=== PATIENT | male | born 1940 | race Caucasian/White ===

== ENCOUNTER 2019-04-28 06:27 | Inpatient (IN) ==
--- NOTE | 2019-04-11 13:52 | Anesthesiology Consultation ---
Date of Service April 11, 2019 Assessment & Plan (1) Encounter for pre-operative examination: - Awaiting review preop testing (labs, EKG, CXR). - Awaiting PCP office visit scheduled 04/22 (Dr. Jaffe). - Check [facility] AM DOS Chart Review Chart Review: Patient seen in Pre Admission Testing Teaching & Discussion Pre-Anesthesia Teaching/Discussion Notes: Instructed NPO after midnight before surgery,except medications with 15 cc of water. Medication instructions provided according to the PAT guidelines. History Surgery Operation Date: 04/28/19 10:25 Proposed Procedures p L2-L3, L3-L4 Lumbar Discectomy and Fusion, Possible Interbody Cage, Spinal Cord Monitoring - Stuart Bernard, Height/Weight Height: 5 ft 6 in Weight: 68.9 kg Allergies Allergy/AdvReac Type Severity Reaction Status Date / Time No Known Allergies Allergy Verified 04/04/19 11:06 Medications Home Medications Medication Instructions Recorded Confirmed Last Taken amlodipine 10 mg PO HS 04/04/19 04/04/19 Unknown ascorbic acid (vitamin C) [Vitamin 500 mg PO QAM 04/04/19 04/04/19 Unknown C] aspirin [Aspir-81] 81 mg PO 3XWK 04/04/19 04/04/19 Unknown atorvastatin 5 mg PO HS 04/04/19 04/04/19 Unknown bimatoprost [Lumigan] 1 drp OPHTHALMIC (EYE) PM 04/04/19 04/04/19 Unknown brimonidine [Alphagan P] 1 drp OPHTHALMIC (EYE) BID 04/04/19 04/04/19 Unknown carvedilol [Coreg] 12.5 mg PO BID 04/04/19 04/04/19 Unknown cholecalciferol (vitamin D3) 1,000 unit PO HS 04/04/19 04/04/19 Unknown [Vitamin D3] coenzyme Q10 [CoQ-10] 100 mg PO HS 04/04/19 04/04/19 Unknown fexofenadine [Shira Allergy] 180 mg PO HS 04/04/19 04/04/19 Unknown fluticasone furoate-vilanterol 1 inh INHALATION Q2D 04/04/19 04/04/19 Unknown [Breo Ellipta] glipizide 5 mg PO QAM 04/04/19 04/04/19 Unknown hydrochlorothiazide 25 mg PO QAM 04/04/19 04/04/19 Unknown insulin glargine U-300 conc 19 unit SUBCUT HS 04/04/19 04/04/19 Unknown [Toujeo Max U-300 SoloStar] insulin lispro [Humalog KwikPen 1 unit SUBCUT QID 04/04/19 04/04/19 Unknown Insulin] lisinopril 40 mg PO QAM 04/04/19 04/04/19 Unknown qslwltke-lcl-SS-lycopen-lutein 1 tab PO QAM 04/04/19 04/04/19 Unknown [Centrum Silver] pantoprazole [Protonix] 40 mg PO QAM 04/04/19 04/04/19 Unknown vit C,X-Vi-bjupn-lutein-zeaxan 1 tab PO QAM 04/04/19 04/04/19 Unknown [PreserVision AREDS-2] Past Medical History Medical History Asthma BPH (benign prostatic hyperplasia) Barretts esophagus Chronic back pain LLE neuropathy Chronic kidney disease stage III- received labs dating back from 09/2018 with creatinine in range of 1.4-1.66 Diabetes mellitus, type 2 IDDM GERD (gastroesophageal reflux disease) controlled Glaucoma B/L Hx of basal cell carcinoma s/p excision Hx of squamous cell carcinoma s/p excision Hyperlipidemia Hypertension On home oxygen therapy 1L HS (?nocturnal hypoxia) Exercise / Class Metabolic Activity III < 4 Walking/Shop/Light housework Past Family History Family History Mother Family history of diabetes mellitus Aunt Family history of diabetes mellitus Grandfather (Paternal) Family history of diabetes mellitus Grandmother (Paternal) Family history of diabetes mellitus Past Surgical History Surgical History History of tonsillectomy and adenoidectomy Hx of basal cell carcinoma excision Hx of hernia repair right inguinal Hx of squamous cell carcinoma excision Past Anesthesia History No Hx of Anesthesia Complications and No Family Hx of Anesthesia Complications History of PONV No Hx of PONV and No Hx of Motion Sickness Social History Smoking Status: Former smoker Do You Dip or Chew Tobacco: No Smoking End Date: Quit 2017; hx <1/2 - 1 PPD x total 60 years Hx Alcohol Use: Yes Alcohol type: beer, wine and hard liquor alcohol intake frequency: a few times a month Hx Substance Use: No Review of Systems Reflux controlled. Patient denies chest pain, shortness of breath, dyspnea on exertion, joint pain, reflux, cough, wheezing, palpitations. Physical Exam Vital Signs VITALS BP 168/67 P 67 TEMP 98.5 SP02 96%RA RESP 16 PHYSICAL Mildly decreased cervical extension ("tightness" per patient) Full TMJ range of motion. TMD 2.5 finger breaths Mallampati Score 2 Dentition: missing sides/molars, upper front bonded teeth Lungs: clear throughout to auscultation Cardiac: regular rate and rhythm, no murmurs noted Spine: normal Carotid arteries: negative bruit Extremities: no edema
--- NOTE | 2019-04-11 13:53 | PAT Medication Instructions ---
Medication Instructions Date of Service April 11, 2019 Home Medications amlodipine 10 mg PO HS ascorbic acid (vitamin C) [Vitamin C] 500 mg PO QAM aspirin [Aspir-81] 81 mg PO 3XWK atorvastatin 5 mg PO HS bimatoprost [Lumigan] 1 drp OPHTHALMIC (EYE) PM brimonidine [Alphagan P] 1 drp OPHTHALMIC (EYE) BID carvedilol [Coreg] 12.5 mg PO BID cholecalciferol (vitamin D3) [Vitamin D3] 1,000 unit PO HS coenzyme Q10 [CoQ-10] 100 mg PO HS fexofenadine [Shira Allergy] 180 mg PO HS fluticasone furoate-vilanterol [Breo Ellipta] 1 inh INHALATION Q2D glipizide 5 mg PO QAM hydrochlorothiazide 25 mg PO QAM insulin glargine U-300 conc [Toujeo Max U-300 SoloStar] 19 unit SUBCUT HS insulin lispro [Humalog KwikPen Insulin] 1 unit SUBCUT QID lisinopril 40 mg PO QAM uwpmhxtr-yrq-FF-lycopen-lutein [Centrum Silver] 1 tab PO QAM pantoprazole [Protonix] 40 mg PO QAM vit C,H-Th-rgfnk-lutein-zeaxan [PreserVision AREDS-2] 1 tab PO QAM Continue as directed fluticasone furoate-vilanterol [Breo Ellipta] 1 inh INHALATION Q2D ASK your prescriber and surgeon aspirin [Aspir-81] 81 mg PO 3XWK STOP taking 2 weeks before surgery (or as soon as possible if surgery is within 2 weeks) coenzyme Q10 [CoQ-10] 100 mg PO HS vit C,U-Eu-uvpit-lutein-zeaxan [PreserVision AREDS-2] 1 tab PO QAM DO NOT take the morning of surgery ascorbic acid (vitamin C) [Vitamin C] 500 mg PO QAM glipizide 5 mg PO QAM hydrochlorothiazide 25 mg PO QAM insulin lispro [Humalog KwikPen Insulin] 1 unit SUBCUT QID lisinopril 40 mg PO QAM [Centrum Silver] 1 tab PO QAM Take morning of surgery With a small sip of water, OTHERWISE NOTHING TO EAT OR DRINK AFTER MIDNIGHT: brimonidine [Alphagan P] 1 drp OPHTHALMIC (EYE) BID carvedilol [Coreg] 12.5 mg PO BID fluticasone furoate-vilanterol [Breo Ellipta] 1 inh INHALATION Q2D pantoprazole [Protonix] 40 mg PO QAM Take evening before surgery amlodipine 10 mg PO HS atorvastatin 5 mg PO HS bimatoprost [Lumigan] 1 drp OPHTHALMIC (EYE) PM brimonidine [Alphagan P] 1 drp OPHTHALMIC (EYE) BID carvedilol [Coreg] 12.5 mg PO BID cholecalciferol (vitamin D3) [Vitamin D3] 1,000 unit PO HS coenzyme Q10 [CoQ-10] 100 mg PO HS fexofenadine [Shira Allergy] 180 mg PO HS insulin glargine U-300 conc [Toujeo Max U-300 SoloStar] 19 unit SUBCUT HS insulin lispro [Humalog KwikPen Insulin] 1 unit SUBCUT QID Other Notes If you have any questions please call us at [phone] or [phone] or [phone] or [phone]
--- NOTE | 2019-04-11 14:47 | XRay Report ---
XR chest Pre-admission PA/Lat HISTORY: Preop. COMPARISON: None. FINDINGS: Punctate calcified granuloma within the right midlung zone. Otherwise, the lungs are clear. The heart is normal in size. No pleural effusions. No pneumothorax. Old, healed right-sided rib frac tures. IMPRESSION: No acute process. Electronically signed by: Abdirahman Minor M.D. 04/11/2019 2:45 PM
[2019-04-11 15:40] LABS: Basophils # (auto) 0.04 K/uL (0-0.2); Basophils % (auto) 0.6 %; Eosinophils # (auto) 0.09 K/uL (0-0.5); Eosinophils % (auto) 1.4 %; Hematocrit (blood only) 35.5 % (42-52); Hemoglobin 11.8 g/dL (14.0-18.0); Immature Granulocytes # (auto) 0.01 K/uL (0.00-0.02); Immature Granulocytes % (auto) 0.2 %; Lymphocytes % (auto) 15.2 %; Mean Corpuscular Hemoglobin 28.9 pg (25-34); Mean Corpuscular Hgb Conc 33.2 g/dL (32-36); Mean Platelet Volume 10.9 fL (7.4-10.4); Monocytes % (auto) 9.1 %; Neutrophils # (auto) 4.85 K/uL (1.4-6.5); Neutrophils % (auto) 73.5 %; Platelet Count 197 K/uL (130-400); RDW Coefficient of Variation 13.8 % (11.5-14.5); RDW Standard Deviation 44.3 fL (36.4-46.3); Red Blood Count 4.08 M/uL (4.7-6.1); White Blood Count 6.59 K/uL (4.8-10.8)
[2019-04-11 15:52] LABS: BUN Creatinine Ratio 33.7 (10-20); Creatinine Clr Calc Pharmacy 34.7 ml/min; Est GFR (Non-African American) 42.3; Potassium 5.2 mmol/L (3.5-5.1)
[2019-04-11 15:53] LABS: Appearance Urine Clear (Clear); Bacteria Urine Automated Negative (Negative); Bilirubin Urine Negative (Negative); Blood Urine Negative (Negative); Cast Urine Automated 0 /lpf (0-5); Color Urine Yellow; Glucose Urine UA 1+ (Negative); Ketones Urine Negative (Negative); Leukocyte Esterase Urine Negative (Negative); Nitrite Urine Negative (Negative); Protein Urine 1+ (Negative); RBC Urine Automated 0-4 /hpf (0-4); Specific Gravity Urine 1.016 (1.000-1.030); Urobilinogen Urine Negative (Negative)
[2019-04-11 16:05] LABS: INR 1.1 (0.9-1.1); Prothrombin Time 10.9 Seconds (9.0-12.0)
[2019-04-12 06:06] LABS: Estimated Average Glucose 174 mg/dl; Hemoglobin A1C 7.7 % (4.5-5.6)
[~2019-04-28 06:27] MED LIST: ACETAMINOPHEN 500 MG TAB PO SCH; CEFAZOLIN 1000MG 1,000 MG/7.5 ML SYR IV SCH; CeleBREX 200 MG CAP PO SCH; GABAPENTIN 300 MG CAP PO SCH; LR 15ML/HR IV SCH
[2019-04-28] MEDS ORDERED: HYDROmorphone INJ 2 MG/ML SYR/VIAL ONE (06:36)
[2019-04-28] MEDS ORDERED: fentaNYL citrate 100 MCG/2 ML VIAL ONE (06:36)
[2019-04-28] MEDS ORDERED: KETAMINE HCL INJ 50 MG/ML 10 ML VIAL ONE (06:36)
--- NOTE | 2019-04-28 07:23 | History & Physical Bridge Note ---
Date of Service April 28, 2019 History & Physical Bridge Note I have examined the patient, reviewed the History & Physical and in the interval since the performance of the History & Physical I have noted the following changes of clinical significance: no changes noted
--- NOTE | 2019-04-28 07:24 | History & Physical Report ---
Date of Service April 28, 2019 Assessment & Plan (1) Spinal stenosis, lumbar region with neurogenic claudication: L2-L4 decompression and fusion Present on Admission?: Yes History of Present Illness Chief Complaint: Back and leg pain Primary Care Provider: NO PCP This is a 78-year-old male who presents with chronic persistent back and leg pain after failing extensive course of nonoperative care is here for surgical intervention. Allergies Allergy/AdvReac Type Severity Reaction Status Date / Time No Known Allergies Allergy Verified 04/28/19 06:45 Home Medications Home Medications Medication Instructions Recorded Confirmed Type amlodipine 10 mg PO HS 04/04/19 04/28/19 History ascorbic acid (vitamin C) [Vitamin 500 mg PO QAM 04/04/19 04/28/19 History C] aspirin [Aspir-81] 81 mg PO 3XWK 04/04/19 04/28/19 History atorvastatin 10 mg PO HS 04/04/19 04/28/19 History bimatoprost [Lumigan] 1 drp OPHTHALMIC (EYE) PM 04/04/19 04/28/19 History brimonidine [Alphagan P] 1 drp OPHTHALMIC (EYE) BID 04/04/19 04/28/19 History carvedilol [Coreg] 12.5 mg PO BID 04/04/19 04/28/19 History cholecalciferol (vitamin D3) 1,000 unit PO HS 04/04/19 04/28/19 History [Vitamin D3] coenzyme Q10 [CoQ-10] 100 mg PO HS 04/04/19 04/28/19 History fexofenadine [Shira Allergy] 180 mg PO HS 04/04/19 04/28/19 History fluticasone furoate-vilanterol 1 inh INHALATION Q2D 04/04/19 04/28/19 History [Breo Ellipta] glipizide 5 mg PO QAM 04/04/19 04/04/19 History hydrochlorothiazide 25 mg PO QAM 04/04/19 04/28/19 History insulin glargine U-300 conc 19 unit SUBCUT HS 04/04/19 04/28/19 History [Toujeo Max U-300 SoloStar] insulin lispro [Humalog KwikPen 1 unit SUBCUT QID 04/04/19 04/28/19 History Insulin] lisinopril 40 mg PO QAM 04/04/19 04/28/19 History ajvvffsr-gds-FI-lycopen-lutein 1 tab PO QAM 04/04/19 04/28/19 History [Centrum Silver] pantoprazole [Protonix] 40 mg PO QAM 04/04/19 04/28/19 History vit C,V-Iy-weziz-lutein-zeaxan 1 tab PO QAM 04/04/19 04/28/19 History [PreserVision AREDS-2] Past Med/Surg History Family History Mother Family history of diabetes mellitus Aunt Family history of diabetes mellitus Grandfather (Paternal) Family history of diabetes mellitus Grandmother (Paternal) Family history of diabetes mellitus Social History Preferred Language: Mauritian Communication Ability: Effective Beliefs That Will Affect Care: None Current Living Situation: Spouse Feels Safe at Home: Yes Safety Concerns: Feels Safe At This Time Smoking Status: Former smoker Do You Dip or Chew Tobacco: No ; Smoking End Date: Quit 2017; hx <1/2 - 1 PPD x total 60 years ; Second Hand Exposure: No ; Hx Alcohol Use: Yes Alcohol type: beer, wine and hard liquor Hx Substance Use: No Results & Data Vital Signs (Past 12 Hours) Vital Signs Temp Pulse Resp BP Pulse Ox 04/28/19 06:59 36.7 C 75 16 183/77 H 96
[2019-04-28] MEDS ORDERED: BACITRACIN INJ 50,000 UNIT VIAL ONE (07:30)
[2019-04-28] MEDS ORDERED: BUPIVACAINE/EPINEPHRINE 0.5% MPF 1:200,000 30 ML VIAL ONE (07:30)
[2019-04-28] MEDS ORDERED: fentaNYL citrate 100 MCG/2 ML VIAL IV PRN (07:33)
[2019-04-28] MEDS ORDERED: ATROPINE SULFATE 0.1 MG/ML 10ML SYR IV PRN (07:33)
[2019-04-28] MEDS ORDERED: HYDROmorphone INJ 1 MG/ML SYRINGE IV PRN ×2 (07:33→10:59)
[2019-04-28] MEDS ORDERED: PHENYLEPHRINE 100MCG/ML 5ML SYR IV PRN (07:33)
[2019-04-28] MEDS ORDERED: ONDANSETRON INJ 2 MG/ML 2 ML VIAL IV PRN ×2 (07:33→10:59)
[2019-04-28] MEDS ORDERED: MEPERIDINE HCL 25 MG/ML CARP IV PRN (07:33)
[2019-04-28] MEDS ORDERED: LABETALOL HCL IV 5 MG/ML 20ML IV PRN (07:33)
[2019-04-28] MEDS ORDERED: ePHEDrine sulfate 50 MG/ML AMP IV PRN (07:33)
[2019-04-28] MEDS ORDERED: FLOSEAL HEMOSTATIC MATRIX 10ML TOP ONE (08:00)
[2019-04-28] MEDS ORDERED: PROPOFOL IV EMULSION 10 MG/ML 20 ML VIAL IV ONE (08:05)
[2019-04-28] MEDS ORDERED: DEXAMETHASONE SOD INJ 4 MG/ML VIAL ONE (08:05)
[2019-04-28] MEDS ORDERED: NEOSTIGMINE METHYLSULFATE 1 MG/ML 10ML VIAL ONE (08:05)
[2019-04-28] MEDS ORDERED: ONDANSETRON INJ 2 MG/ML 2 ML VIAL ONE (08:05)
[2019-04-28] MEDS ORDERED: ROCURONIUM BROMIDE 10 MG/ML 5 ML VIAL ONE (08:05)
[2019-04-28] MEDS ORDERED: GLYCOPYRROLATE 0.2 MG/ML VIAL ONE (08:05)
[2019-04-28] MEDS ORDERED: LIDOCAINE HCL 2% 2 ML VIAL/AMP(20MG/ML) INFIL ONE (08:05)
[2019-04-28] MEDS ORDERED: ePHEDrine sulfate 50 MG/ML SYR ONE (08:23)
--- NOTE | 2019-04-28 09:31 | Operative Report ---
Post Operative Report Pre & Post Diagnosis Operation Date: 04/28/19 07:45 Pre-Op Diagnosis: Spondyloslisthesis, Lumbar Region Spinal stenosis with neurogenic claudication Post-Op Diagnosis: Same I identified the patient and participated in the time-out.: Yes Procedure Operation Date: 04/28/19 07:45 Actual Procedures #1 lumbar decompression with bilateral medial facetectomies and foraminotomies L2-3 L3-4. #2 posterior spinal fusion L2-3 L3-4. #3 placement posterior instrumentation L2-3 L3-4. #4 interbody fusion L3-4. #5 placement of peek cage 11 x 26 mm at L3-4. #6 basement of local autograft in the posterior lateral gutters. #7 placement infuse collagen sponge, master graft in the posterior lateral gutters and ostial amp and interbody space. Surgeon Stuart Bernard DO Construction Analyst Cristel Mckinnon Estimated Blood Loss 50 Findings Consistent with Post-Op Diagnosis Specimens None Indications This is an 78-year-old male who presents with the above-mentioned diagnosis after failing extensive course of nonoperative care is here for surgical intervention. Description of Procedure Patient was met with identified and informed consent obtained. Patient was then taken to the operative suite underwent intubation placed in a prone position the Gary table on top of the Donovan frame. All bony prominences well-padded eyes inspected to ensure no external pressure placed upon the peer at this point the lumbar spine was prepped and draped in the normal sterile fashion. Sharp dissection with the assistance of Bovie cautery was then performed down to and exposing the lamina transverse processes of L2-L3-L4 bilaterally. From a caudal cephalad fashion complete laminectomy of L3 and L2 was performed including bilateral medial facetectomies and foraminotomies addressing severe spinal stenosis. Pedicle screws were then placed in L2-L3-L4 bilaterally with assistance of fluoroscopy the purposes anjali placed. By way of a transforaminal approach on the left complete discectomy was performed endplates curetted to subcortical bleeding bone and a 11 x 26 mm peek cage filled with osteo-amp bone graft tapped in position. The rods were then compressed locked into final position bilaterally. The transverse processes of L2-L3-L4 were then burred to subcortical bleeding bone. Infuse collagen sponge master graft and local autograft placed in the posterior lateral gutters. 15 round TAD drain inserted. The incision was then closed with 1 Vicryl in the fascia 2-0 Vicryl subcutaneously 4 Monocryl for final skin closure. Steri-Strip sterile dressings placed. Patient awakened taken to PACU in stable condition. Please note spinal cord monitoring was utilized that the procedure no changes noted. Lastly Cristel Mckinnon was present throughout the entire procedure involved in patient positioning complex portions of the surgery and final skin closure. I attest to the content of the Intraoperative Record and any orders documented therein. Any exceptions are noted below.
--- NOTE | 2019-04-28 09:51 | Fluoroscopy Report ---
LUMBAR SPINE, INTRAOPERATIVE FLUOROSCOPY HISTORY: L2-L4 decompression and fusion. FLUOROSCOPY TIME: 18 seconds. FINDINGS: Intraoperative fluoroscopy was provided for the lumbar spine. 2 fluoroscopic spot images we re obtained. Posterior decompression fusion from L2 through L4 with pedicle screws and rods. The hard johnson appears intact. IMPRESSION: Fluoroscopy provided for a L2-L4 posterior decompression and fusion. Electronically signed by: Abdirhaman Minor M.D. 04/28/2019 9:50 AM
--- NOTE | 2019-04-28 10:45 | Anesthesiology Progress Note ---
Date of Service April 28, 2019 Anesthesia Post Procedure Vital Signs Vital Signs: Temp Pulse Resp BP Pulse Ox 04/28/19 10:21 36.8 C 51 L 14 140/58 L 94 04/28/19 10:10 36.8 C 58 L 17 137/56 L 96 04/28/19 10:00 52 L 15 136/55 L 99 04/28/19 09:50 53 L 12 134/59 L 100 04/28/19 09:40 36.2 C L 61 18 124/54 L 100 04/28/19 06:59 36.7 C 75 16 183/77 H 96 Transfer of Care Handoff Completed per policy Notes Mental Status: alert / awake / arousable Patient Amnestic to Procedure: Yes Nausea / Vomiting: adequately controlled Pain: adequately controlled Airway Patency, RR, SpO2: stable & adequate BP & HR: stable & adequate Hydration State: stable & adequate Anesthetic Complications: no major complications apparent and Pt Satisfied with anesthetic care
[2019-04-28] MEDS ORDERED: NALOXONE HCL 0.4 MG/1 ML VIAL/CARP IV PRN (10:59)
[2019-04-28] MEDS ORDERED: DO NOT ADMINISTER FLU VACCINE PRN (10:59)
[2019-04-28] MEDS ORDERED: PROMETHAZINE HCL 12.5 MG in SODIUM CHLORIDE 0.9% 50 ML IV PRN (10:59)
[2019-04-28] MEDS ORDERED: FAMOTIDINE 20 MG TAB PO PRN (10:59)
[2019-04-28] MEDS ORDERED: HYDROmorphone INJ 0.5 MG/0.5 ML SYR IV PRN (10:59)
[2019-04-28] MEDS ORDERED: SOD PHOSPHATE/SOD BIPHOSPHATE ENEMA 132 ML BTL PR PRN (10:59)
[2019-04-28] MEDS ORDERED: LORazepam 0.5 MG TAB PO PRN (10:59)
[2019-04-28] MEDS ORDERED: ACETAMINOPHEN 1,000 MG/100 ML VIAL IV PRN (10:59)
[2019-04-28] MEDS ORDERED: BISACODYL 10 MG SUPP PR PRN (10:59)
[2019-04-28] MEDS ORDERED: LORazepam 0.5 MG/1 ML VIAL IV PRN (10:59)
[2019-04-28] MEDS ORDERED: DO NOT ADMINISTER PNEUMOCOCCAL VACCINE PRN (10:59)
[2019-04-28] MEDS ORDERED: ONDANSETRON 4 MG TAB PO PRN (10:59)
[2019-04-28] MEDS ORDERED: OXYCODONE HCL IR 5 MG TAB (IMMEDIATE RELEASE) PO PRN (10:59)
[2019-04-28] MEDS ORDERED: ALUMINUM/MAGNESIUM SUSP 30 ML UDC PO PRN (10:59)
[2019-04-28] MEDS ORDERED: MAGNESIUM HYDROXIDE SUSP 30 ML UDC PO PRN (10:59)
[2019-04-28] MEDS ORDERED: METOCLOPRAMIDE HCL INJ 5 MG/ML 2 ML VIAL IV PRN (10:59)
[2019-04-28] MEDS ORDERED: GLUCOSE 40% GEL 15 GM TUBE PO PRN (11:59)
[2019-04-28] MEDS ORDERED: GLUCOSE 10 TABS/TUBE PO PRN (11:59)
[2019-04-28] MEDS ORDERED: GLUCAGON FOR INJ 1 MG VIAL SQ PRN (11:59)
[2019-04-28] MEDS ORDERED: DEXTROSE 50% 50 ML SYRINGE IV PRN (11:59)
[2019-04-28] MEDS ORDERED: CARBOHYDRATES FOR HYPOGLYCEMIA PO PRN (11:59)
[2019-04-28] MEDS: ASPIRIN 81 MG ECTAB PO SCH (12:02)
[2019-04-28] MEDS: SODIUM CHLORIDE 0.9% 1000ML 1,000 ML IV SCH ×2 (12:02→21:51)
--- NOTE | 2019-04-28 12:17 | Hospitalist Consultation ---
Date of Consultation April 28, 2019 Assessment & Plan (1) Spinal stenosis, lumbar region with neurogenic claudication: - POD#0 L2-L4 decompression fusion by Dr. Bernard - activity and wound care orders as per ortho - pain control with bowel regimen - PT/OT - monitor H/H for acute blood loss anemia and transfuse blood products PRN - EBL 50 cc (2) Diabetes mellitus, type 2: -Hgb A1c 7.7 04/2019 -Hold oral agents and home regimen and utilize Lantus and NovoLog protocol hospitalized (3) Hypertension: -Continue amlodipine, carvedilol, lisinopril, HCTZ (4) COPD (chronic obstructive pulmonary disease): -No signs of acute exacerbation, continue home inhalers (5) CKD (chronic kidney disease), stage III: -Monitor renal function (6) Hyperlipidemia: -Continue statin (7) GERD (gastroesophageal reflux disease): -Continue PPI (8) DVT prophylaxis: -TEDs/SCDs as per orthopedics Thank you for this consultation. We will follow the patient with you during their hospital stay. You can reach a member of the [facility] Hospitalist Team 22/01 via pager @ [phone]. Supervising Physician Co-Signing Physician Notes I have seen and examined the patient and have discussed the case with the provider above. I agree with the assessment and plan as stated. 78 yo M s/p L2-L3, L3-L4 Lumbar Discectomy and Fusion, L3-L4 Interbody Fusion earlier today. He is doing well, denying pain. Physical exam reveals a clean and dry bandage over the incision site with a drain in place. Lungs are clear to auscultation and heart exam is WNL. He is hemodynamically stable. We briefly discussed that he should avoid glipizide in addition to basal and bolus insulin therapy, and work with PCP to titrate his insulin to reach his goal A1C (currently he reports this is 7.9.) As the day went on, blood glucose maría and pharmacy consult was requested for additional correction overnight. He is otherwise doing well. Cordell nk you for this consultation. We will continue to follow the patient throughout the hospitalization. DO Harsha History of Present Illness Reason for Consultation: Postop medical management Requesting Physician: Dr. Bernard Attending Physician: Dr. Mcleod History of Present Illness 78-year-old male who is status post L2-L4 decompression fusion today by Dr. Bernard. Postoperatively, the patient is doing well. He reports his pain is well controlled. He has chronic numbness and tingling to the bilateral lower extremities which is unchanged from baseline. Denies chest pain shortness of breath. No lightheadedness or dizziness. Denies abdominal pain and nausea. Munoz catheter is in place draining clear yellow urine. Allergies Allergy/AdvReac Type Severity Reaction Status Date / Time No Known Allergies Allergy Verified 04/28/19 06:45 Home Medications Home Medications Medication Instructions Recorded Confirmed Type amlodipine 10 mg PO HS 04/04/19 04/28/19 History ascorbic acid (vitamin C) [Vitamin 500 mg PO QAM 04/04/19 04/28/19 History C] aspirin [Aspir-81] 81 mg PO 3XWK 04/04/19 04/28/19 History atorvastatin 10 mg PO HS 04/04/19 04/28/19 History bimatoprost [Lumigan] 1 drp OPHTHALMIC (EYE) PM 04/04/19 04/28/19 History brimonidine [Alphagan P] 1 drp OPHTHALMIC (EYE) BID 04/04/19 04/28/19 History carvedilol [Coreg] 12.5 mg PO BID 04/04/19 04/28/19 History cholecalciferol (vitamin D3) 1,000 unit PO HS 04/04/19 04/28/19 History [Vitamin D3] coenzyme Q10 [CoQ-10] 100 mg PO HS 04/04/19 04/28/19 History fexofenadine [Shira Allergy] 180 mg PO HS 04/04/19 04/28/19 History fluticasone furoate-vilanterol 1 inh INHALATION Q2D 04/04/19 04/28/19 History [Breo Ellipta] glipizide 5 mg PO QAM 04/04/19 04/04/19 History hydrochlorothiazide 25 mg PO QAM 04/04/19 04/28/19 History insulin glargine U-300 conc 19 unit SUBCUT HS 04/04/19 04/28/19 History [Toujeo Max U-300 SoloStar] insulin lispro [Humalog KwikPen 1 unit SUBCUT QID 04/04/19 04/28/19 History Insulin] lisinopril 40 mg PO QAM 04/04/19 04/28/19 History tpdudmfl-dxl-ZT-lycopen-lutein 1 tab PO QAM 04/04/19 04/28/19 History [Centrum Silver] pantoprazole [Protonix] 40 mg PO QAM 04/04/19 04/28/19 History vit C,N-Qp-pndpn-lutein-zeaxan 1 tab PO QAM 04/04/19 04/28/19 History [PreserVision AREDS-2] Patient History Medical History CKD (chronic kidney disease), stage III (Chronic) COPD (chronic obstructive pulmonary disease) (Chronic) On home oxygen therapy (Chronic) 1L HS (?nocturnal hypoxia) Hyperlipidemia (Chronic) Hypertension (Chronic) Glaucoma (Chronic) B/L Hx of squamous cell carcinoma (Chronic) s/p excision Hx of basal cell carcinoma (Chronic) s/p excision Diabetes mellitus, type 2 (Chronic) IDDM GERD (gastroesophageal reflux disease) (Chronic) controlled Barretts esophagus (Chronic) BPH (benign prostatic hyperplasia) (Chronic) Chronic back pain (Chronic) LLE neuropathy Surgical History Hx of squamous cell carcinoma excision (Chronic) Hx of basal cell carcinoma excision (Chronic) Hx of hernia repair (Chronic) right inguinal History of tonsillectomy and adenoidectomy (Chronic) Family History Mother Kidney disease Brother Melanoma Social History Preferred Language: Bahraini Communication Ability: Effective Beliefs That Will Affect Care: None Current Living Situation: Spouse Feels Safe at Home: Yes Safety Concerns: Feels Safe At This Time Smoking Status: Former smoker Do You Dip or Chew Tobacco: No ; Smoking End Date: Quit 2017; hx <1/2 - 1 PPD x total 60 years ; Second Hand Exposure: No ; Hx Alcohol Use: Yes Alcohol type: beer, wine and hard liquor Alcohol Intake Frequency Comment: 2x/month Hx Substance Use: No Review of Systems Review of Systems: ROS per HPI, all other systems reviewed and negative Physical Exam Constitutional: WD/WN, vitals as above Eyes: PERRL, conjunctivae normal, anicteric sclerae ENMT: external ear and nose normal, oropharynx normal Respiratory: normal respiratory effort, lungs clear to auscultation Cardiovascular: Rate/Rhythm: regular rate and regular rhythm Vessels: normal peripheral pulses Extremities: no edema Gastrointestinal (Abdomen): normal bowel sounds, soft, nontender, no hepatosplenomegaly Musculoskeletal: no cyanosis or clubbing, extremities motor strength 5/5 S/P back surgery, pedal pushes and pulls strong bilaterally Skin: no rashes, warm and dry Neurologic: PERRL, EOMI, accommodation nl, no face palsy, no dysarthria Psychiatric: A+Ox3, euthymic affect Results & Data Vital Signs (Past 12 Hours) Vital Signs Temp Pulse Pulse Pulse Resp BP Pulse Ox 04/28/19 11:58 62 16 150/68 H 95 04/28/19 11:10 49 L 16 148/67 H 97 04/28/19 10:40 36.4 C L 58 L 16 143/65 H 100 04/28/19 10:21 36.8 C 51 L 14 140/58 L 94 04/28/19 10:10 36.8 C 58 L 17 137/56 L 96 04/28/19 10:00 52 L 15 136/55 L 99 04/28/19 09:50 53 L 12 134/59 L 100 04/28/19 09:40 36.2 C L 61 18 124/54 L 100 04/28/19 06:59 36.7 C 75 16 183/77 H 96
[2019-04-28] MEDS: CEFAZOLIN 1000MG 1,000 MG/7.5 ML SYR IV SCH ×2 (14:26→21:52)
[2019-04-28] MEDS: INSULIN ASPART 100 UNITS/ML 3 ML PEN SC SCH ×3 (14:28→21:05)
[2019-04-28] MEDS ORDERED: COUGH DROP (SUGAR FREE) LOZ 24 LOZ/1 BOX BUCCAL STA (15:53)
[2019-04-28] MEDS ORDERED: COUGH DROP (SUGAR FREE) LOZ 24 LOZ/1 BOX BUCCAL PRN (16:37)
[2019-04-28] MEDS: FLUTICASONE/VILANTEROL INHALER INH SCH (18:15)
[2019-04-28] MEDS: ACETAMINOPHEN 500 MG TAB PO PRN (19:11)
[2019-04-28] MEDS ORDERED: INSULIN GLARGINE SOLOSTAR 100 UNITS/ML 3 ML PEN SC STA (20:57)
[2019-04-28] MEDS ORDERED: PHARMACY GLYCEMIC MGMT CONSULT PRN (20:59)
[2019-04-28] MEDS ORDERED: BIMATOPROST 0.01% OP SOLN 2.5 ML BTL OP SCH (21:00)
[2019-04-28] MEDS ORDERED: ALPHAGAN P 0.1% OP SCH (21:00)
[2019-04-28] MEDS ORDERED: NON-FORMULARY MEDICATION (Coenzyme Q10 [Coq-10] 100 MG) PO SCH (21:00)
[2019-04-28] MEDS ORDERED: INSULIN GLARGINE SOLOSTAR 100 UNITS/ML 3 ML PEN SC SCH (21:00)
[2019-04-28] MEDS: FEXOFENADINE HCL 180 MG TAB PO SCH (21:13)
[2019-04-28] MEDS: DOCUSATE SODIUM/SENNA 50/8.6MG TAB PO SCH (21:13)
[2019-04-28] MEDS: CHOLECALCIFEROL 1,000 UNITS TAB PO SCH (21:14)
[2019-04-28] MEDS: AMLODIPINE BESYLATE 5 MG TAB PO SCH (21:15)
[2019-04-28] MEDS: ATORVASTATIN 10 MG TAB PO SCH (21:16)
[2019-04-28] MEDS: CARVEDILOL 12.5 MG TAB PO SCH (21:16)
[2019-04-28] MEDS: LUMIGAN 0.01% OP SCH (21:17)
[2019-04-28] MEDS: ALPHAGAN P 0.1% OP SCH (21:17)
[2019-04-29] MEDS: INSULIN ASPART 100 UNITS/ML 3 ML PEN SC SCH ×6 (00:17→21:27)
[2019-04-29] MEDS: POLYETHYLENE (MIRALAX) 17 GM PACK PO SCH ×4 (05:28→23:36)
[2019-04-29] MEDS: SODIUM CHLORIDE 0.9% 1000ML 1,000 ML IV SCH (05:29)
[2019-04-29 05:36] LABS: Basophils # (auto) 0.01 K/uL (0-0.2); Basophils % (auto) 0.1 %; Hematocrit (blood only) 28.6 % (42-52); Hemoglobin 9.6 g/dL (14.0-18.0); Immature Granulocytes # (auto) 0.03 K/uL (0.00-0.02); Immature Granulocytes % (auto) 0.3 %; Lymphocytes # (auto) 0.61 K/uL (1.2-3.4); Lymphocytes % (auto) 6.1 %; Mean Corpuscular Hemoglobin 29.1 pg (25-34); Mean Corpuscular Hgb Conc 33.6 g/dL (32-36); Mean Corpuscular Volume 86.7 fL (80-100); Mean Platelet Volume 10.9 fL (7.4-10.4); Neutrophils # (auto) 8.48 K/uL (1.4-6.5); Neutrophils % (auto) 84.5 %; Platelet Count 185 K/uL (130-400); RDW Coefficient of Variation 13.6 % (11.5-14.5); RDW Standard Deviation 43.2 fL (36.4-46.3); White Blood Count 10.03 K/uL (4.8-10.8)
[2019-04-29 06:06] LABS: BUN Creatinine Ratio 27.8 (10-20); Calcium 7.9 mg/dl (8.5-10.1); Creatinine Clr Calc Pharmacy 35.4 ml/min; Est GFR (African American) 50.2; Est GFR (Non-African American) 43.3; Potassium 4.2 mmol/L (3.5-5.1)
[2019-04-29] MEDS ORDERED: glipiZIDE 5 MG TAB PO SCH (07:30)
--- NOTE | 2019-04-29 07:43 | Anesthesiology Progress Note ---
Date of Service April 29, 2019 Anesthesia Post Procedure Vital Signs Vital Signs: Temp Pulse Pulse Pulse Resp BP Pulse Ox 04/29/19 07:39 37.0 C 76 18 145/65 H 94 04/29/19 03:26 37 C 72 15 128/54 L 93 04/28/19 23:35 36.4 C L 65 16 117/65 95 04/28/19 18:38 36.5 C 59 L 17 152/71 H 97 04/28/19 15:28 36.4 C L 66 18 142/66 H 96 04/28/19 13:41 60 16 159/76 H 96 04/28/19 12:40 68 16 146/72 H 95 04/28/19 11:58 62 16 150/68 H 95 04/28/19 11:10 49 L 16 148/67 H 97 04/28/19 10:40 36.4 C L 58 L 16 143/65 H 100 04/28/19 10:21 36.8 C 51 L 14 140/58 L 94 04/28/19 10:10 36.8 C 58 L 17 137/56 L 96 04/28/19 10:00 52 L 15 136/55 L 99 04/28/19 09:50 53 L 12 134/59 L 100 04/28/19 09:40 36.2 C L 61 18 124/54 L 100 Notes Mental Status: alert / awake / arousable and participated in evaluation Patient Amnestic to Procedure: Yes Nausea / Vomiting: adequately controlled Pain: adequately controlled Airway Patency, RR, SpO2: stable & adequate BP & HR: stable & adequate Hydration State: stable & adequate Anesthetic Complications: no major complications apparent and Pt Satisfied with anesthetic care
[2019-04-29] MEDS: ASCORBIC ACID 500 MG TAB PO SCH (08:18)
[2019-04-29] MEDS: CEROVITE ADV FORMULA TAB PO SCH (08:18)
[2019-04-29] MEDS: PANTOprazole 40 MG TAB PO SCH (08:18)
[2019-04-29] MEDS: LISINOPRIL 40 MG TAB PO SCH (08:18)
[2019-04-29] MEDS: hydroCHLOROthiazide 25 MG TAB PO SCH (08:18)
[2019-04-29] MEDS: ALPHAGAN P 0.1% OP SCH ×2 (08:19→20:38)
[2019-04-29] MEDS: CARVEDILOL 12.5 MG TAB PO SCH ×2 (08:19→20:39)
[2019-04-29] MEDS: ACETAMINOPHEN 500 MG TAB PO PRN (08:23)
[2019-04-29] MEDS ORDERED: INSULIN GLARGINE SOLOSTAR 100 UNITS/ML 3 ML PEN SC ONE (09:00)
[2019-04-29] MEDS ORDERED: NON-FORMULARY MEDICATION (Vit C,E-Zn-Coppr-Lutein-Zeaxan [Preservision Areds-2] 1 TAB) PO SCH (09:00)
--- NOTE | 2019-04-29 10:02 | Orthopedic Progress Note ---
Date of Service April 29, 2019 Assessment & Plan (1) Spinal stenosis, lumbar region with neurogenic claudication: This time will initiate physical therapy monitor his TAD output hopefully discharge home in the next few days. Present on Admission?: Yes Subjective Back pain is controlled leg pain improved Physical Exam Physical Exam: Patient is in the chair at the bedside. Appears comfortable. Good strength testing. Results & Data Vital Signs (Past 12 Hours) Vital Signs Temp Pulse Resp BP Pulse Ox 04/29/19 07:39 37.0 C 76 18 145/65 H 94 04/29/19 03:26 37 C 72 15 128/54 L 93 04/28/19 23:35 36.4 C L 65 16 117/65 95
--- NOTE | 2019-04-29 10:37 | Pharmacy Report ---
Glycemic Control Consultation - Date of Service April 29, 2019 - Scope Scope: Glycemic Pharmacist consulted by Dr Mcleod on 04/28/19 for glycemic control and to write orders per [facility] inpatient glycemic control protocol - Objective Weight: 67.449 kg Accuchecks BSG (last 24hrs): 04/28/19 04/28/19 04/28/19 10:51 17:13 17:16 Glucose POC Glucose 215 H 332 H* 338 H* 04/28/19 04/28/19 04/29/19 20:22 20:26 00:00 Glucose POC Glucose 313 H* 319 H* 297 H 04/29/19 04/29/19 04/29/19 04:09 04:43 08:14 Glucose 230 H POC Glucose 234 H 191 H Laboratory Data (last 24hrs): 04/29/19 04:43 Potassium 4.2 Carbon Dioxide 23 Anion Gap 7.0 Creatinine 1.50 H Est Cr Clr Drug Dosing 35.4 HbA1c: Hemoglobin A1c 7.7 % (4.5-5.6) H 04/11/19 14:12 - Recent Pertinent Medications Outpatient Anti-diabetic Regimen: * Toujeo 19 units HS * Glipizide 5 mg PO daily - was recently told to stop this medication (potentially based on renal function) * Insulin lispro ACHS (1 unit for every 11 grams of carbs with breakfast, lunch, bedtime snack + 1 unit for every 10 grams of carbs with dinner) * A1c = 7.7 % (04/11/19) Risk Factors for Insulin Resistance: * Steroids: DXM IV x1 given on 04/28 * Recent Surgery: POD #1 s/p lumbar discectomy and fusion * Diet: T2DM - Assessment & Plan Assessment & Plan: ASSESSMENT: * WP is an 78 year old male who is POD #1 s/p lumbar discectomy and fusion * Patient's PMH includes spinal stenosis, type 2 DM, hypertension, COPD, CKD, hyperlipidemia, and GERD * Patient received 35 units of Lantus yesterday in place of home dose of 19 units (Toujeo) in order to cover for dexamethasone-induced hyperglycemia * BSGs yesterday ranged 185-338 mg/dL (most likely due to dexamethasone-induced hyperglycemia) * Patient received 60 units of insulin yesterday (35 basal, 25 bolus) * Fasting BSG this morning of 191 mg/dL PLAN FOR INPATIENT GLYCEMIC CONTROL: * Holding outpatient oral diabetes medications * Basal insulin * Lantus 12 units given this AM (weight-based stress of 2 dosing) * Will utilize Lantus scale starting this evening BID * -7 units if BSG 120 mg/dL or less * -12 units if BSG greater than 120 mg/dL * Bolus insulin - will loosen CF and CR based on discontinuation of steroid * NovoLog per scale ACHS or Q6hrs while NPO * Goal Range: Low 110 mg/dL - High 140 mg/dL * Correction Factor: 30 mg/dL/unit * Nutritional / Prandial insulin per carb ratio of 1 unit per 10 grams CHO consumed * Please note that the plan above was derived based on current level of insulin resistance and hospital stress. These recommendations are appropriate for inpatient admission only. Plan of care upon discharge will need to be reassessed to avoid potential outpatient hypo/hyperglycemia. Thank you.
--- NOTE | 2019-04-29 11:11 | Orthopedic Progress Note ---
Date of Service April 29, 2019 Assessment & Plan (1) Spinal stenosis, lumbar region with neurogenic claudication: This time continue physical therapy advance his bowel regiment hopefully discharge home in the next few days. We will also arrange home health. Present on Admission?: Yes Subjective Back pain controlled leg pain improved. Physical Exam Physical Exam: Patient is in the chair at the bedside. Is excellent strength testing. Appears comfortable. Results & Data Vital Signs (Past 12 Hours) Vital Signs Temp Pulse Resp BP Pulse Ox 04/29/19 07:39 37.0 C 76 18 145/65 H 94 04/29/19 03:26 37 C 72 15 128/54 L 93 04/28/19 23:35 36.4 C L 65 16 117/65 95
--- NOTE | 2019-04-29 11:39 | Hospitalist Progress Note ---
Date of Service April 29, 2019 Assessment & Plan (1) Spinal stenosis, lumbar region with neurogenic claudication: - POD#1 L2-L4 decompression fusion by Dr. Bernard - activity and wound care orders as per ortho - pain control with bowel regimen - PT/OT - monitor H/H - EBL 30 cc Expected blood loss anemia/ dilutional - normocytic - current Hgb 9.6 (down from 11.8 earlier this month) - pt asymptomatic - will cont. to monitor, transfuse if Hgb <7 (2) Diabetes mellitus, type 2: -Hgb A1c 7.7 04/2019 -Due to worsening hyperglycemia yesterday (steroid-induced), pharmacy was consulted for DM management -Holding oral diabetes medications while inpt (3) Hypertension: -Continue amlodipine, carvedilol, lisinopril, HCTZ (4) COPD (chronic obstructive pulmonary disease): -No signs of acute exacerbation, continue home inhalers (5) CKD (chronic kidney disease), stage III: -Monitor renal function (6) Hyperlipidemia: -Continue statin (7) GERD (gastroesophageal reflux disease): -Continue PPI (8) DVT prophylaxis: -TEDs/SCDs as per orthopedics Thank you for this consultation. We will follow the patient with you during their hospital stay. You can reach a member of the [facility] Hospitalist Team 22/01 via pager @ [phone]. Subjective Patient is sitting in the chair comfortable, in no acute distress. Patient's at the bedside. Patient denies any fevers, chills, chest pain, shortness of breath, abdominal pain, nausea or vomiting. Tolerates p.o. intake. Reports that right lower extremity numbness has resolved after surgery, left lower extremity numbness somewhat improved. Review of Systems Review of Systems: All systems reviewed & are unremarkable except as noted in HPI & below Constitutional: no fever, no chills, no body aches and no fatigue Respiratory: no cough and no dyspnea Cardiovascular: no chest pain and no palpitations Gastrointestinal: no abdominal pain, no nausea and no vomiting Neurologic: Improved lower extremity numbness b/l Physical Exam Physical Exam: General appearance: Elderly male sitting up in a chair, in no acute distress Constitutional: Well-developed, well-nourished Eyes: PERRL, EOMI, conjunctivae normal, anicteric sclerae ENMT: external ear and nose normal, oropharynx normal Respiratory: normal respiratory effort, lungs clear to auscultation, no wheezing, rhonchi, crackles Cardiovascular: Rate/Rhythm: regular rate and regular rhythm Vessels: normal peripheral pulses Extremities: no edema Gastrointestinal (Abdomen): normal bowel sounds, soft, nontender, nondistended, no guarding Musculoskeletal: Moves all 4 extremities spontaneously and without difficulty Skin: no rashes, warm and dry Neurologic: PERRL, EOMI, no dysarthria, no facial asymmetry Psychiatric: A+Ox3, euthymic affect Results & Data Vital Signs (Past 12 Hours) Vital Signs Temp Pulse Resp BP Pulse Ox 04/29/19 07:39 37.0 C 76 18 145/65 H 94 04/29/19 03:26 37 C 72 15 128/54 L 93 Laboratory Results 04/29/19 04/29/19 04/29/19 Range/Units 08:14 04:43 04:43 WBC 10.03 (4.8-10.8) K/uL RBC 3.30 L (4.7-6.1) M/uL Hgb 9.6 L (14.0-18.0) g/dL Hct 28.6 L (42-52) % MCV 86.7 (80-100) fL MCH 29.1 (25-34) pg MCHC 33.6 (32-36) g/dL RDW Std Deviation 43.2 (36.4-46.3) fL RDW Coeff of Octaviano 13.6 (11.5-14.5) % Plt Count 185 (130-400) K/uL MPV 10.9 H (7.4-10.4) fL Immature Gran % (Auto) 0.3 % Neut % (Auto) 84.5 % Lymph % (Auto) 6.1 % [place] % (Auto) 9.0 % Eos % (Auto) 0.0 % Baso % (Auto) 0.1 % Immature Gran # (Auto) 0.03 H (0.00-0.02) K/uL Neut # (Auto) 8.48 H (1.4-6.5) K/uL Lymph # (Auto) 0.61 L (1.2-3.4) K/uL [place] # (Auto) 0.90 H (0.11-0.59) K/uL Eos # (Auto) 0.00 (0-0.5) K/uL Baso # (Auto) 0.01 (0-0.2) K/uL Sodium 137 (136-145) mmol/L Potassium 4.2 (3.5-5.1) mmol/L Chloride 107 (98-107) mmol/L Carbon Dioxide 23 (21-32) mmol/L Anion Gap 7.0 (3-11) BUN 42 H (7-18) mg/dl Creatinine 1.50 H (0.6-1.4) mg/dl Est Cr Clr Drug Dosing 35.4 ml/min Est GFR ( Amer) 50.2 Est GFR (Non-Af Amer) 43.3 BUN/Creatinine Ratio 27.8 H (10-20) Glucose 230 H (70-99) mg/dl POC Glucose 191 H (70-99) Calcium 7.9 L (8.5-10.1) mg/dl 04/29/19 04/29/19 04/28/19 Range/Units 04:09 00:00 20:26 WBC (4.8-10.8) K/uL RBC (4.7-6.1) M/uL Hgb (14.0-18.0) g/dL Hct (42-52) % MCV (80-100) fL MCH (25-34) pg MCHC (32-36) g/dL RDW Std Deviation (36.4-46.3) fL RDW Coeff of Octaviano (11.5-14.5) % Plt Count (130-400) K/uL MPV (7.4-10.4) fL Immature Gran % (Auto) % Neut % (Auto) % Lymph % (Auto) % [place] % (Auto) % Eos % (Auto) % Baso % (Auto) % Immature Gran # (Auto) (0.00-0.02) K/uL Neut # (Auto) (1.4-6.5) K/uL Lymph # (Auto) (1.2-3.4) K/uL [place] # (Auto) (0.11-0.59) K/uL Eos # (Auto) (0-0.5) K/uL Baso # (Auto) (0-0.2) K/uL Sodium (136-145) mmol/L Potassium (3.5-5.1) mmol/L Chloride (98-107) mmol/L Carbon Dioxide (21-32) mmol/L Anion Gap (3-11) BUN (7-18) mg/dl Creatinine (0.6-1.4) mg/dl Est Cr Clr Drug Dosing ml/min Est GFR ( Amer) Est GFR (Non-Af Amer) BUN/Creatinine Ratio (10-20) Glucose (70-99) mg/dl POC Glucose 234 H 297 H 319 H* (70-99) Calcium (8.5-10.1) mg/dl 04/28/19 04/28/19 04/28/19 Range/Units 20:22 17:16 17:13 WBC (4.8-10.8) K/uL RBC (4.7-6.1) M/uL Hgb (14.0-18.0) g/dL Hct (42-52) % MCV (80-100) fL MCH (25-34) pg MCHC (32-36) g/dL RDW Std Deviation (36.4-46.3) fL RDW Coeff of Octaviano (11.5-14.5) % Plt Count (130-400) K/uL MPV (7.4-10.4) fL Immature Gran % (Auto) % Neut % (Auto) % Lymph % (Auto) % [place] % (Auto) % Eos % (Auto) % Baso % (Auto) % Immature Gran # (Auto) (0.00-0.02) K/uL Neut # (Auto) (1.4-6.5) K/uL Lymph # (Auto) (1.2-3.4) K/uL [place] # (Auto) (0.11-0.59) K/uL Eos # (Auto) (0-0.5) K/uL Baso # (Auto) (0-0.2) K/uL Sodium (136-145) mmol/L Potassium (3.5-5.1) mmol/L Chloride (98-107) mmol/L Carbon Dioxide (21-32) mmol/L Anion Gap (3-11) BUN (7-18) mg/dl Creatinine (0.6-1.4) mg/dl Est Cr Clr Drug Dosing ml/min Est GFR ( Amer) Est GFR (Non-Af Amer) BUN/Creatinine Ratio (10-20) Glucose (70-99) mg/dl POC Glucose 313 H* 338 H* 332 H* (70-99) Calcium (8.5-10.1) mg/dl Medications Administered Current Inpatient Medications Acetaminophen (Tylenol) 1,000 mg PO Q8H PRN PRN Reason: MILD Pain Rating 1,2,3 Stop: 05/28/19 10:58 Last Admin: 04/29/19 08:23 Dose: 1,000 mg Documented by: Al Hydrox/Mg Hydrox/Simethicone (Maalox) 30 ml PO Q6H PRN PRN Reason: Dyspepsia Stop: 05/28/19 10:58 Amlodipine Besylate (Norvasc) 10 mg PO [facility] Stop: 05/28/19 20:59 Last Admin: 04/28/19 21:15 Dose: 10 mg Documented by: Ascorbic Acid (Vitamin C) [facility] [place]: 05/29/19 08:59 Last Admin: 04/29/19 08:18 Dose: 500 mg Documented by: Aspirin (Ecotrin Ectab) 81 mg PO MoWeFr@0900 [facility] Stop: 05/28/19 11:59 Last Admin: 04/28/19 12:02 Dose: 81 mg Documented by: Atorvastatin Calcium (Lipitor) 10 mg PO [facility] Stop: 05/28/19 20:59 Last Admin: 04/28/19 21:16 Dose: 10 mg Documented by: Bisacodyl (Dulcolax) 10 mg HI DAILY PRN PRN Reason: Constipation Stop: 05/28/19 10:58 Carvedilol (Coreg) 12.5 mg PO BID [facility] Stop: 05/28/19 20:59 Last Admin: 04/29/19 08:19 Dose: 12.5 mg Documented by: Dextrose (Dextrose 50%) 25 - 50 ml IV UD PRN; Protocol PRN Reason: Hypoglycemia Protocol Stop: 05/28/19 11:58 Diphenhydramine HCl (Benadryl Capsule) 25 mg PO Q6H PRN PRN Reason: Allergic Rhinitis/Insomnia Stop: 05/28/19 10:58 Famotidine (Pepcid) 20 mg PO Q12H PRN PRN Reason: Dyspepsia Stop: 11/27/19 10:58 Fexofenadine HCl (Shira) 180 mg PO HS [facility] Stop: 05/28/19 20:59 Last Admin: 04/28/19 21:13 Dose: 180 mg Documented by: Fluticasone/Vilanterol (Breo Ellipta) 1 puffs INH Q2D [facility] Stop: 05/28/19 16:29 Last Admin: 04/28/19 18:15 Dose: Not Given Documented by: Glucagon (Glucagen) 1 mg SQ UD PRN; Protocol PRN Reason: Hypoglycemia Protocol Stop: 05/28/19 11:58 Glucose (Glucose 40%) 15 - 30 gm PO UD PRN; Protocol PRN Reason: Hypoglycemia Protocol Stop: 05/28/19 11:58 Glucose (Dex4 Glucose) 4 - 8 tabs PO UD PRN; Protocol PRN Reason: Hypoglycemia Protocol Stop: 05/28/19 11:58 Hydrochlorothiazide (Hctz) 25 mg PO QAM [facility] Stop: 05/29/19 08:59 Last Admin: 04/29/19 08:18 Dose: 25 mg Documented by: Hydromorphone HCl (Dilaudid) 0.5 mg IV Q3H PRN PRN Reason: moderate pain (scale 4-6) Stop: 05/12/19 10:58 Hydromorphone HCl (Dilaudid) 1 mg IV Q3H PRN PRN Reason: severe pain (scale 7-10) Stop: 05/12/19 10:58 Hydroxyzine HCl (Vistaril) 25 mg PO Q8H PRN PRN Reason: Anxiety Stop: 05/28/19 10:58 Acetaminophen (Ofirmev) 1,000 mg in 100 mls @ 400 mls/hr IV Q8 PRN PRN Reason: MILD Pain Rating 1,2,3 Stop: 05/01/19 10:58 Lorazepam (Ativan) 0.5 mg in 1 mls @ 0.5 mls/min IV Q8H PRN PRN Reason: Sedation/Anxiety Stop: 05/28/19 10:58 Promethazine HCl 12.5 mg/ (Sodium Chloride) 50.5 mls @ 204 mls/hr IV Q6H PRN PRN Reason: Nausea &/or Vomiting Stop: 05/28/19 10:58 Influenza Virus Vaccine Quadrival (Flu Vaccine, Do Not Administer) 1 ea N/A PRN PRN PRN Reason: Notification Stop: 05/28/19 10:58 Insulin Aspart (Novolog Flexpen) 0 units SC ACHS [facility] Stop: 05/28/19 13:14 Last Admin: 04/29/19 08:21 Dose: 9 units Documented by: Lisinopril (Zestril) 40 mg PO QAM [facility] Stop: 05/29/19 08:59 Last Admin: 04/29/19 08:18 Dose: 40 mg Documented by: Lorazepam (Ativan) 0.5 mg PO Q8H PRN PRN Reason: Sedation/Anxiety Stop: 05/28/19 10:58 Magnesium Hydroxide (Milk Of Magnesia) 30 ml PO DAILY PRN PRN Reason: Constipation Stop: 05/28/19 10:58 Menthol (Nice) 1 zahraa BUCCAL PRN PRN PRN Reason: Cough Stop: 05/28/19 16:36 Last Admin: 04/28/19 16:59 Dose: 1 zahraa Documented by: Metoclopramide HCl (Reglan) 10 mg IV Q6H PRN PRN Reason: Nausea &/or Vomiting Stop: 05/28/19 10:58 Miscellaneous (Carbohydrates For Hypoglycemia) 15 - 30 gm PO UD PRN PRN Reason: Hypoglycemia Treatment Stop: 05/28/19 11:58 Miscellaneous Information (Consult Glycemic Management Pharmacy) 1 ea N/A UD PRN PRN Reason: Consult Stop: 05/28/19 20:58 Multivitamins/Minerals (Multivitamin W/ Minerals Tab) 1 tab PO QAM [facility] Stop: 05/29/19 08:59 Last Admin: 04/29/19 08:18 Dose: 1 tab Documented by: Naloxone HCl (Narcan) 0.1 mg IV Q5M PRN; Protocol PRN Reason: Oversedation/Resp Depression Stop: 05/28/19 10:58 Lumigan 0.01%: Non- Formulary Patient's Own Med 1 ea OP HS [facility] Stop: 05/28/19 20:59 Last Admin: 04/28/19 21:17 Dose: 1 drops Documented by: Alphagan P 0.1%: Non -Formulary Patient's Own Med 1 ea OP BID [facility] Stop: 05/28/19 20:59 Last Admin: 04/29/19 08:19 Dose: 1 drops Documented by: Ondansetron HCl (Zofran) 4 mg IV Q6H PRN PRN Reason: Nausea &/or Vomiting Stop: 05/28/19 10:58 Ondansetron HCl (Zofran Tab) 4 mg PO Q6H PRN PRN Reason: Nausea Stop: 05/28/19 10:58 Oxycodone HCl (Roxicodone Immediate Rel) 5 - 10 mg PO Q4H PRN PRN Reason: Moderate-Severe Pain Stop: 05/12/19 10:58 Pantoprazole Sodium (Protonix) 40 mg PO QAM [facility] Stop: 05/29/19 08:59 Last Admin: 04/29/19 08:18 Dose: 40 mg Documented by: Pneumococcal Polyvalent Vaccine (Pneumococcal Vacc, Do Not Administer) 1 ea N/A PRN PRN PRN Reason: Notification Stop: 05/28/19 10:58 Polyethylene Glycol (Miralax Powder Packet) 17 gm PO Q6 [facility] Stop: 05/29/19 05:59 Last Admin: 04/29/19 05:28 Dose: 17 gm Documented by: Senna/Docusate Sodium (Senokot S) 2 tab PO HS [facility] Stop: 05/28/19 20:59 Last Admin: 04/28/19 21:13 Dose: 2 tab Documented by: Sodium Biphosphate/Sodium Phosphate (Fleet Enema) 132 ml HI ONE PRN PRN Reason: Constipation Stop: 05/28/19 10:58 Tramadol HCl (Ultram) 50 - 100 mg PO Q4H PRN PRN Reason: Moderate-Severe pain Stop: 05/28/19 10:58 Vitamin D (Vitamin D3) 1,000 units PO HS [facility] Stop: 05/28/19 20:59 Last Admin: 04/28/19 21:14 Dose: 1,000 units Documented by:
[2019-04-29] MEDS: TRAMADOL HCL 50 MG TABLET PO PRN ×3 (12:25→22:32)
[2019-04-29] MEDS: LUMIGAN 0.01% OP SCH (20:38)
[2019-04-29] MEDS: ATORVASTATIN 10 MG TAB PO SCH (20:39)
[2019-04-29] MEDS: DOCUSATE SODIUM/SENNA 50/8.6MG TAB PO SCH (20:39)
[2019-04-29] MEDS: FEXOFENADINE HCL 180 MG TAB PO SCH (20:39)
[2019-04-29] MEDS: AMLODIPINE BESYLATE 5 MG TAB PO SCH (20:39)
[2019-04-29] MEDS: CHOLECALCIFEROL 1,000 UNITS TAB PO SCH (20:39)
[2019-04-29] MEDS: INSULIN GLARGINE SOLOSTAR 100 UNITS/ML 3 ML PEN SC SCH (21:27)
[2019-04-30] MEDS: POLYETHYLENE (MIRALAX) 17 GM PACK PO SCH ×3 (05:28→17:59)
[2019-04-30] MEDS: INSULIN ASPART 100 UNITS/ML 3 ML PEN SC SCH ×4 (07:39→21:15)
[2019-04-30] MEDS: INSULIN GLARGINE SOLOSTAR 100 UNITS/ML 3 ML PEN SC SCH (07:40)
[2019-04-30] MEDS: PANTOprazole 40 MG TAB PO SCH (07:41)
[2019-04-30] MEDS: CEROVITE ADV FORMULA TAB PO SCH (07:41)
[2019-04-30] MEDS: CARVEDILOL 12.5 MG TAB PO SCH ×2 (07:41→21:19)
[2019-04-30] MEDS: LISINOPRIL 40 MG TAB PO SCH (07:41)
[2019-04-30] MEDS: hydroCHLOROthiazide 25 MG TAB PO SCH (07:41)
[2019-04-30] MEDS: ASPIRIN 81 MG ECTAB PO SCH (07:41)
[2019-04-30] MEDS: ALPHAGAN P 0.1% OP SCH ×2 (07:42→21:25)
[2019-04-30] MEDS: ASCORBIC ACID 500 MG TAB PO SCH (07:42)
[2019-04-30 09:25] LABS: Hematocrit (blood only) 29.3 % (42-52); Mean Corpuscular Hemoglobin 29.2 pg (25-34); Mean Corpuscular Hgb Conc 34.1 g/dL (32-36); Mean Corpuscular Volume 85.4 fL (80-100); Mean Platelet Volume 10.3 fL (7.4-10.4); Platelet Count 168 K/uL (130-400); RDW Standard Deviation 43.7 fL (36.4-46.3); Red Blood Count 3.43 M/uL (4.7-6.1); White Blood Count 10.72 K/uL (4.8-10.8)
[2019-04-30 09:53] LABS: Calcium 8.5 mg/dl (8.5-10.1); Creatinine Clr Calc Pharmacy 35.2 ml/min; Est GFR (African American) 49.8; Potassium 4.6 mmol/L (3.5-5.1)
--- NOTE | 2019-04-30 09:56 | Hospitalist Progress Note ---
Date of Service April 30, 2019 Assessment & Plan (1) Spinal stenosis, lumbar region with neurogenic claudication: - POD#2 L2-L4 decompression fusion by Dr. Bernard - activity and wound care orders as per ortho - pain control with bowel regimen - PT/OT - H/H stable with hgb of 10 today (2) Diabetes mellitus, type 2: -Hgb A1c 7.7 04/2019 -Due to worsening hyperglycemia yesterday (steroid-induced), pharmacy was consulted for DM management -Holding oral diabetes medications while inpt (3) Hyponatremia: Na of 130 today but corrects to 132 when accounting for hyperglycemia -Asymptomatic, appears euvolemic -Continue to monitor (4) Hypertension: -Continue amlodipine, carvedilol, lisinopril, HCTZ (5) COPD (chronic obstructive pulmonary disease): -No signs of acute exacerbation, continue home inhalers (6) CKD (chronic kidney disease), stage III: -Renal function at baseline (7) Hyperlipidemia: -Continue statin (8) GERD (gastroesophageal reflux disease): -Continue PPI (9) DVT prophylaxis: -TEDs/SCDs as per orthopedics Thank you for this consultation. We will follow the patient with you during their hospital stay. You can reach a member of the [facility] Hospitalist Team 22/01 via pager @ [phone]. Patient seen in collaboration with Dr. Schmitt. Please see addendum. Supervising Physician Co-Signing Physician Notes HISTORY: Record reviewed. Patient interviewed and examined. Care coordinated with Danika Meier PA-C. Doing well postoperatively. No chest pain, cough, SOB, nausea, vomiting. No BM yet. Pain well-controlled. EXAM: General- no distress Lungs- clear to auscultation; no respiratory distress Cardiovascular- RRR; no murmur; no gallop; no JVD; no pretibial edema Abdomen- + bowel sounds, soft, nontender Extremities- no cyanosis; no calf tenderness Neuro- alert, oriented Skin- warm & dry DATA: Na 130. ASSESSMENT AND PLAN: Doing well postop. Blood sugars elevated- pharmacy consulted for glycemic management. Serum sodium 130- hold HCTZ and follow. Please refer to SHAKA Meier's documentation for discussion of other issues. Subjective Seen and examined in 305-1. Patient is sitting in chair reading, in no acute distress. Surgical site pain minimal. No new numbness or paresthesias of lower extremities (chronic paresthesias in LLE, RLE has resolved with surgery). Denies any fevers, chills, chest pain, shortness of breath, nausea, vomiting, abdominal pain, dysuria or diarrhea. Passing flatus but no BM yet. Review of Systems Review of Systems: At least ten systems reviewed and negative except as noted in the HPI. Physical Exam Physical Exam: General Appearance: WD/WN, vitals as above, NAD, sitting in bedside chair, pleasant, conversing easily Head: normocephalic, atraumatic Eyes: normal inspection, PERRL, conjunctivae normal, anicteric sclerae ENT: external ear and nose normal, oropharynx normal Neck: trachea midline, no thyromegaly normal visual inspection Respiratory: lungs clear to auscultation, no wheeze, rales, rhonchi. Normal insp/exp effort, no accessory muscle use Cardiovascular: regular rate, rhythm, no murmur, normal peripheral pulses. Vessels: no JVD or carotid bruit Chest: normal inspection of chest Abdomen/GI: normal bowel sounds, soft, nontender, no hepatosplenomegaly Extremities/Musculoskelatal: + Lumbosacral dressing clean, dry, intact. TAD drain visualized with minimal output. No cyanosis or clubbing, extremities motor strength 5/5 Neurologic: PERRL, EOMI, CN's II-XI intact bilaterally and moves all extremities Psychiatric: A+Ox3, euthymic affect Skin: no rashes, normal color, warm/dry Results & Data Vital Signs (Past 12 Hours) Vital Signs Temp Pulse Resp BP BP Pulse Ox 04/30/19 06:17 36.4 C L 65 15 147/67 H 97 04/30/19 00:21 36.7 C 68 15 109/57 L 95 Laboratory Results Short CBC 04/11/19 04/29/19 04/30/19 Range/Units 14:58 04:43 09:07 WBC 10.72 (4.8-10.8) K/uL Hgb 10.0 L (14.0-18.0) g/dL Hct 29.3 L (42-52) % Plt Count 168 (130-400) K/uL Sodium 136 137 (136-145) mmol/L Creatinine 1.53 H 1.50 H (0.6-1.4) mg/dl Glucose 285 H 230 H (70-99) mg/dl 04/30/19 Range/Units 09:07 WBC (4.8-10.8) K/uL Hgb (14.0-18.0) g/dL Hct (42-52) % Plt Count (130-400) K/uL Sodium 130 L D (136-145) mmol/L Creatinine 1.51 H (0.6-1.4) mg/dl Glucose 234 H (70-99) mg/dl BMP 04/30/19 09:07 Sodium 130 L D Potassium 4.6 Chloride 100 Carbon Dioxide 23 BUN 44 H Creatinine 1.51 H Glucose 234 H Calcium 8.5
--- NOTE | 2019-04-30 10:02 | Pharmacy Report ---
Pharmacy Glycemic Short Note 2 - Date of Service April 30, 2019 - Glycemic Short BSG Results (Last 24 hours): 04/29/19 04/29/19 04/29/19 12:42 17:11 21:19 Glucose POC Glucose 146 H 83 101 H 04/30/19 04/30/19 06:40 09:07 Glucose 234 H POC Glucose 110 H Outpatient Anti-diabetic Regimen: * Toujeo 19 units HS * Glipizide 5 mg PO daily - was recently told by inpatient provider to stop this medication (potentially based on renal function) * Insulin lispro ACHS (1 unit for every 11 grams of carbs with breakfast, lunch, bedtime snack + 1 unit for every 10 grams of carbs with dinner) * A1c = 7.7 % (04/11/19) ASSESSMENT: 04/30 * Patient received 39 units of insulin yesterday (19 units of which were basal) * Fasting BSG yesterday was elevated at 191 mg/dL, but patient received dexamethasone IV on day previous * BSGs the rest of the day yesterday were well-controlled (83-146 mg/dL) * Fasting BSG this morning is 110 mg/dL 04/29 * WP is an 78 year old male who is POD #1 s/p lumbar discectomy and fusion * Patient's PMH includes spinal stenosis, type 2 DM, hypertension, COPD, CKD, hyperlipidemia, and GERD * Patient received 35 units of Lantus yesterday in place of home dose of 19 units (Toujeo) in order to cover for dexamethasone-induced hyperglycemia * BSGs yesterday ranged 185-338 mg/dL (most likely due to dexamethasone-induced hyperglycemia) * Patient received 60 units of insulin yesterday (35 basal, 25 bolus) * Fasting BSG this morning of 191 mg/dL PLAN FOR INPATIENT GLYCEMIC CONTROL: * Hold outpatient oral diabetes medications * Basal insulin * Lantus 7 units given this morning * Will order lantus scale for tonight: * -12 units if BSG 180 mg/dL or less (would equal 19 units for today, which is his home dose) * -19 units if BSG 181 mg/dL or above * Then will plan for 19 units HS ongoing starting 05/01 (based on home regimen and anticipation of discharge soon) * Bolus insulin - continue current parameters * NovoLog per scale ACHS or Q6hrs while NPO * Goal Range: Low 110 mg/dL - High 140 mg/dL * Correction Factor: 30 mg/dL/unit * Nutritional / Prandial insulin per carb ratio of 1 unit per 10 grams CHO consumed PLAN FOR DISCHARGE: * Per patient, his goal is less than 8% - most recent A1c is 7.7%, so he is at goal. * Continue current regimen. Reasonable to discontinue glipizide based on impaired renal function and likely adequate control with SC basal/bolus insulin. Patient already agreeable to this and discussed with physician while inpatient.
--- NOTE | 2019-04-30 14:14 | Orthopedic Progress Note ---
Date of Service April 30, 2019 Assessment & Plan (1) Spinal stenosis, lumbar region with neurogenic claudication: At this time we will continue physical therapy monitor his TAD output anticipate discharge home tomorrow. Present on Admission?: Yes Subjective Patient's pain is well controlled. His leg pain improved. Physical Exam Physical Exam: Patient is in the chair at the bedside. Is good strength testing. Appears comfortable. Results & Data Vital Signs (Past 12 Hours) Vital Signs Temp Pulse Resp BP Pulse Ox 04/30/19 06:17 36.4 C L 65 15 147/67 H 97
[2019-04-30] MEDS: FLUTICASONE/VILANTEROL INHALER INH SCH (15:39)
[2019-04-30] MEDS: ACETAMINOPHEN 500 MG TAB PO PRN (18:25)
[2019-04-30] MEDS ORDERED: INSULIN GLARGINE SOLOSTAR 100 UNITS/ML 3 ML PEN SC SCH ×2 (21:00)
[2019-04-30] MEDS: DOCUSATE SODIUM/SENNA 50/8.6MG TAB PO SCH (21:23)
[2019-04-30] MEDS: AMLODIPINE BESYLATE 5 MG TAB PO SCH (21:24)
[2019-04-30] MEDS: ATORVASTATIN 10 MG TAB PO SCH (21:24)
[2019-04-30] MEDS: CHOLECALCIFEROL 1,000 UNITS TAB PO SCH (21:24)
[2019-04-30] MEDS: FEXOFENADINE HCL 180 MG TAB PO SCH (21:25)
[2019-04-30] MEDS: LUMIGAN 0.01% OP SCH (21:56)
[2019-05-01] MEDS: POLYETHYLENE (MIRALAX) 17 GM PACK PO SCH (00:15)
[2019-05-01] MEDS ORDERED: Nursing to Pharmacy Communication ONE (04:50)
[2019-05-01 05:37] LABS: Hematocrit (blood only) 25.8 % (42-52); Hemoglobin 8.9 g/dL (14.0-18.0); Mean Corpuscular Hemoglobin 29.3 pg (25-34); Mean Corpuscular Hgb Conc 34.5 g/dL (32-36); Mean Corpuscular Volume 84.9 fL (80-100); Mean Platelet Volume 10.6 fL (7.4-10.4); Platelet Count 156 K/uL (130-400); RDW Coefficient of Variation 13.7 % (11.5-14.5); RDW Standard Deviation 42.7 fL (36.4-46.3); Red Blood Count 3.04 M/uL (4.7-6.1)
[2019-05-01 06:06] LABS: BUN Creatinine Ratio 28.9 (10-20); Calcium 8.2 mg/dl (8.5-10.1); Creatinine Clr Calc Pharmacy 31.1 ml/min; Est GFR (African American) 42.9; Potassium 4.4 mmol/L (3.5-5.1)
--- NOTE | 2019-05-01 08:16 | Pharmacy Report ---
Pharmacy Glycemic Short Note 2 - Date of Service May 01, 2019 - Glycemic Short BSG Results (Last 24 hours): 04/30/19 04/30/19 04/30/19 09:07 12:23 17:28 Glucose 234 H POC Glucose 196 H 159 H 04/30/19 05/01/19 05/01/19 20:57 04:42 08:03 Glucose 179 H POC Glucose 173 H 193 H Outpatient Anti-diabetic Regimen: * Toujeo 19 units HS * Glipizide 5 mg PO daily - was recently told by inpatient provider to stop this medication (potentially based on renal function) * Insulin lispro ACHS (1 unit for every 11 grams of carbs with breakfast, lunch, bedtime snack + 1 unit for every 10 grams of carbs with dinner) * A1c = 7.7 % (04/11/19) ASSESSMENT: 05/01 * Patient is now POD #3 s/p lumbar discectomy and fusion * Patient received 37 units of insulin yesterday (19 units of which were basal) * BSGs yesterday ranging 110-196 mg/dL * Fasting BSG this morning is 193 mg/dL * Anticipating patient discharge today 04/29 * WP is an 78 year old male who is POD #1 s/p lumbar discectomy and fusion * Patient's PMH includes spinal stenosis, type 2 DM, hypertension, COPD, CKD, hyperlipidemia, and GERD * Patient received 35 units of Lantus yesterday in place of home dose of 19 units (Toujeo) in order to cover for dexamethasone-induced hyperglycemia * BSGs yesterday ranged 185-338 mg/dL (most likely due to dexamethasone-induced hyperglycemia) * Patient received 60 units of insulin yesterday (35 basal, 25 bolus) * Fasting BSG this morning of 191 mg/dL PLAN FOR INPATIENT GLYCEMIC CONTROL: * Hold outpatient oral diabetes medications * Basal insulin * 19 units HS ongoing starting tonight (based on home regimen and anticipation of discharge soon) * Bolus insulin - tighten current parameters * NovoLog per scale ACHS or Q6hrs while NPO * Goal Range: Low 110 mg/dL - High 140 mg/dL * Correction Factor: 25 mg/dL/unit * Nutritional / Prandial insulin per carb ratio of 1 unit per 8 grams CHO consumed PLAN FOR DISCHARGE: * Per patient, his goal is less than 8% - most recent A1c is 7.7%, so he is at goal. * Continue current regimen. Reasonable to discontinue glipizide based on impaired renal function and likely adequate control with SC basal/bolus insulin. Patient already agreeable to this and discussed with physician while inpatient.
[2019-05-01] MEDS: INSULIN ASPART 100 UNITS/ML 3 ML PEN SC SCH (08:39)
[2019-05-01] MEDS: ASCORBIC ACID 500 MG TAB PO SCH (08:40)
[2019-05-01] MEDS: ACETAMINOPHEN 500 MG TAB PO PRN (08:40)
[2019-05-01] MEDS: LISINOPRIL 40 MG TAB PO SCH (08:40)
[2019-05-01] MEDS: CEROVITE ADV FORMULA TAB PO SCH (08:41)
[2019-05-01] MEDS: ALPHAGAN P 0.1% OP SCH (08:41)
[2019-05-01] MEDS: PANTOprazole 40 MG TAB PO SCH (08:41)
[2019-05-01] MEDS: CARVEDILOL 12.5 MG TAB PO SCH (08:41)
[2019-05-01] MEDS: TRAMADOL HCL 50 MG TABLET PO PRN (08:46)
--- NOTE | 2019-05-01 10:13 | Hospitalist Progress Note ---
Date of Service May 01, 2019 Assessment & Plan (1) Spinal stenosis, lumbar region with neurogenic claudication: - POD#3 L2-L4 decompression fusion by Dr. Bernard - activity and wound care orders as per ortho - pain control with bowel regimen - PT/OT - H/H stable with hgb of 8.9 today (2) Diabetes mellitus, type 2: -Hgb A1c 7.7 04/2019 -Due to worsening hyperglycemia yesterday (steroid-induced), pharmacy was consulted for DM management -Holding oral diabetes medications while inpt (3) Hyponatremia: Na improved to 132 today (from 130) -Morning dose of HCTZ held. Instructed to resume upon discharge and follow up with PCP for repeat BMP in 1 week (also written in discharge instructions) -Asymptomatic, appears euvolemic -Continue to monitor (4) Hypertension: -Continue amlodipine, carvedilol, lisinopril, HCTZ (5) COPD (chronic obstructive pulmonary disease): -No signs of acute exacerbation, continue home inhalers (6) Hyperlipidemia: -Continue statin (7) GERD (gastroesophageal reflux disease): -Continue PPI (8) DVT prophylaxis: -TEDs/SCDs as per orthopedics Thank you for this consultation. We will follow the patient with you during their hospital stay. You can reach a [facility] via pager @ [phone]. Patient seen in collaboration with Dr. Schmitt. Please see addendum. Supervising Physician Co-Signing Physician Notes HISTORY: Record reviewed. Patient interviewed and examined this morning. Care coordinated with Danika Meier PA-C. Doing well postoperatively. No chest pain, cough, SOB, nausea, vomiting. Passing flatus and stool. Pain well-controlled. Being discharged today. EXAM: General- no distress Lungs- clear to auscultation; no respiratory distress Cardiovascular- RRR; no murmur; no gallop; no JVD; no pretibial edema Abdomen- + bowel sounds, soft, nontender Extremities- no cyanosis; no calf tenderness Neuro- alert, oriented Skin- warm & dry DATA: Na 132. ASSESSMENT AND PLAN: Doing well postop. Blood sugars improved. Discharge on usual regimen. Serum sodium 130 --> 132. Resume HCTZ. Patient advised to have PCP obtain BMP next week. Please refer to SHAKA Meier's documentation for discussion of other issues. Subjective Seen and examined in 305-1. Patient is sitting in chair reading, in no acute distress. Surgical site pain minimal. No new numbness or paresthesias of lower extremities (chronic paresthesias in LLE, RLE has resolved with surgery). Denies any fevers, chills, chest pain, shortness of breath, nausea, vomiting, abdominal pain, dysuria or diarrhea. Passing flatus and had 2 BMs yesterday. Primary service to discharge today. Review of Systems Review of Systems: At least ten systems reviewed and negative except as noted in the HPI. Physical Exam Physical Exam: General Appearance: WD/WN, vitals as above, NAD, sitting in bedside chair, pleasant, conversing easily Head: normocephalic, atraumatic Eyes: normal inspection, PERRL, conjunctivae normal, anicteric sclerae ENT: external ear and nose normal, oropharynx normal Neck: trachea midline, no thyromegaly normal visual inspection Respiratory: lungs clear to auscultation, no wheeze, rales, rhonchi. Normal insp/exp effort, no accessory muscle use Cardiovascular: regular rate, rhythm, no murmur, normal peripheral pulses Chest: normal inspection of chest Abdomen/GI: normal bowel sounds, soft, nontender, no hepatosplenomegaly Extremities/Musculoskelatal: + Lumbosacral surgical dressing clean, dry, intact. +TAD drain with minimal output. No cyanosis or clubbing, extremities motor strength 5/5 Neurologic: PERRL, CN's II-XI intact bilaterally and moves all extremities Psychiatric: A+Ox3, euthymic affect Skin: no rashes, normal color, warm/dry Results & Data Vital Signs (Past 12 Hours) Vital Signs Temp Pulse Resp BP Pulse Ox 05/01/19 07:01 37.0 C 71 17 134/55 L 93 04/30/19 23:25 37.1 C 67 16 107/46 L 92 Laboratory Results Short CBC 05/01/19 Range/Units 04:42 WBC 7.80 (4.8-10.8) K/uL Hgb 8.9 L (14.0-18.0) g/dL Hct 25.8 L (42-52) % Plt Count 156 (130-400) K/uL BMP 05/01/19 04:42 Sodium 132 L Potassium 4.4 Chloride 102 Carbon Dioxide 22 BUN 49 H Creatinine 1.71 H Glucose 179 H Calcium 8.2 L
--- NOTE | 2019-05-01 10:16 | Discharge Summary ---
Date of Service May 01, 2019 Admission HPI Per Admitting Provider This is a 78-year-old male who presents with chronic persistent back and leg pain after failing extensive course of nonoperative care is here for surgical intervention. Principal Diagnosis Lumbar spinal stenosis with neurogenic claudication Discharge Data Allergies Allergy/AdvReac Type Severity Reaction Status Date / Time No Known Allergies Allergy Verified 04/28/19 06:45 Consultations 04/28/19 10:59 Consult Case Management - Discharge Planning Routine Consult Hospitalist Routine Procedures Performed Operation Date: 04/28/19 07:45 Actual Procedures p L2-L3, L3-L4 Lumbar Discectomy and Fusion, L3-L4 Interbody Fusion, with Spinal Cord Monitoring(Not Applicable) - Stuart Bernard DO Ordered Studies 04/28/19 07:45 FL fluoroscopy <1hr Routine FL lumbar spine 2-3V Routine Hospital Course (1) Spinal stenosis, lumbar region with neurogenic claudication: Patient underwent multilevel lumbar decompression fusion tolerated as well as taken to the orthopedic for postoperative. Postop day #1 he was up and ambulating leg pain improved. Progressive postop day #2 and 3. Subsequently discharged home. Discharge orders instructions from the chart for further review. Total Time Total Time Spent Total Time Spent (In Minutes): 20 minutes Discharge Plan Discharge Items Patient Disposition: Home - Self-Care Reason For Visit: Spondyloslisthesis, Lumbar Region Discharge Diagnosis: Lumbar spinal stenosis with neurogenic claudication Activity: As commented below Non-emergency contact: Primary Care Provider Call non-emergency contact if: you have any medication questions Follow-up/Referrals: PCP,NO [Primary Care Provider] - Diet: Regular Addtl Attending Provider Instructions: ACTIVITY RECOMMENDATIONS: SELF CARE INSTRUCTIONS AFTER THORACIC/LUMBAR FUSIONS 1. You may walk to your tolerance. It is good exercise for your legs and back. Expect some back and intermittent leg aches and pains. 2. You may perform "counter-top" level activities (make a sandwich, ernestine with a project, etc.). 3. No bending or lifting of more than 10 pounds or back twisting of any nature (roll like a log when turning in bed). 4. You may ride in a car for 20-30 minutes at a time. No driving until after your first visit with your doctor. 5. Frequent changes of position and restricting sitting to 30 minutes at a time will help limit the amount of back spasms and stiffness you may experience. 6. You may discontinue the use of ambulatory aids (cane, crutches, etc.) once your strength and confidence allow. 7. You may marine electronics repairer the shower and let water strike your incision when you arrive home at least once daily. Do not take a tub bath, sit in a hot tub or go into a swimming pool until after your first recheck in the office. SPECIAL CARE INSTRUCTIONS: VERY IMPORTANT TO READ AND REVIEW A. Your surgical incision has been closed with a cosmetic suture under the skin that will dissolve in about 6 weeks. In 14 days, you can use a pair of clean scissors and cut the suture that is left outside of the skin at the ends of your incision. 1. The small skin tapes can be removed 7 days after surgery if they have not fallen off by that point. 2. You may keep the wound open to air as much as possible to promote healing after post-op day number 5 unless told otherwise by your doctor. 3. If you think the wound looks like it is becoming infected (redness or worsening drainage) and/or you are experiencing fever, chill or worsening back pain and muscle spasms, contact the office so that we may evaluate you as soon as possible. B. Complications are uncommon, but please contact us if you have any signs or symptoms of: 1. wound infection (fever higher than 102.5 degrees F, redness, separation of wound, drainage, or increasing pain from the incision) 2. blood clots in legs (pain, swelling, redness and warmth in legs) 3. urinary tract infection (fever higher than 102.5 degrees F, burning upon urination or increased frequency of urination) 4. nerve problems (inability to walk on your toes or heels, numbness, loss of bowel or bladder control) 5. any other symptoms that concern you C. Please call the office at if you have any concerns or questions about your operation or recovery. D. No smoking! Smoking drastically decreases the chance of a solid fusion. E. Do not take any anti-inflammatory medications (Indocin, Advil, Motrin, Aspirin, Naprosyn, etc.) as these may inhibit the chance of a solid fusion. Tylenol is okay to take for pain. MANAGING PAIN AFTER SPINAL SURGERY 1. Narcotic medication is intended for short-term use and will be provided for surgical pain. Surgical pain usually lasts for a period of 4-6 weeks. Narcotic medication includes Percocet, Vicodin, Darvocet, Tylenol #3 or Lortab. 2. Longer-term pain is more appropriately treated with non-narcotic medication such as Tylenol ES. 3. Muscle spasm is not appropriately treated with narcotics. Muscle relaxers such as Soma, Flexeril or Skelaxin can be used along with Tylenol ES. 4. Remember that we all live with some "aches and pains". This is not unusual or uncommon after an injury or as we get older. a. Back pain is expected and may include muscle spasms for 4 to 6 weeks after surgery. The pain should gradually improve. If the pain worsens for no apparent reason, please contact the office. b. Intermittent leg pain may also be experienced and should not be concerned about unless it worsens for no apparent reason. If so, please contact the office. 5. We will provide appropriate medication within the normal guidelines of their prescribed use. We will also be very cautious and aware of potential abuse and extended duration of patients' medication needs. a. Pain medications are for your comfort and to assist with sleep and rest so that the tissue can heal. They are not provided in order to return to normal activity and should not be used through the day. To do so or worsening pain at night can result from ongoing tissue damage and development of tolerance to the prescribed medicine. 6. Please allow 2-3 days to process refills. Prescriptions will not be mailed but must be picked up at the office. FOLLOW UP VISIT: Keep your scheduled follow-up appointment. Any questions, please call the office at . Pending Studies at Discharge: No Stand-Alone Forms: [facility], Sm[facility] Cess[facility] Medications and DC Order Prescriptions: New tramadol 50 mg tablet 50 mg PO Q6H PRN (Reason: pain, moderate) Qty: 30 RF: 0 oxycodone 5 mg tablet 5 mg PO Q6H PRN (Reason: pain, severe) Qty: 30 RF: 0 Continued carvedilol [Coreg] 12.5 mg Tablet 12.5 mg PO BID RF: 0 atorvastatin 10 mg Tablet 10 mg PO HS RF: 0 fexofenadine [Shira Allergy] 180 mg Tablet 180 mg PO HS RF: 0 aspirin [Aspir-81] 81 mg Tablet,Delayed Release (Dr/Ec) 81 mg PO 3XWK RF: 0 ascorbic acid (vitamin C) [Vitamin C] 500 mg Tablet 500 mg PO QAM RF: 0 amlodipine 10 mg Tablet 10 mg PO HS RF: 0 pantoprazole [Protonix] 40 mg Tablet,Delayed Release (Dr/Ec) 40 mg PO QAM RF: 0 hydrochlorothiazide 25 mg Tablet 25 mg PO QAM RF: 0 lisinopril 40 mg Tablet 40 mg PO QAM RF: 0 glipizide 5 mg Tablet 5 mg PO QAM RF: 0 insulin lispro [Humalog KwikPen Insulin] 100 unit/mL Insulin Pen 1 unit SUBCUT QID RF: 0 coenzyme Q10 [CoQ-10] 100 mg Capsule 100 mg PO HS RF: 0 Centrum Silver 0.4-300-250 mg-mcg-mcg Tablet 1 tab PO QAM RF: 0 Alphagan P 0.1 % Drops 1 drp OPHTHALMIC (EYE) BID RF: 0 cholecalciferol (vitamin D3) [Vitamin D3] 1,000 unit (25 mcg) Tablet 1,000 unit PO HS RF: 0 Lumigan 0.01 % Drops 1 drp OPHTHALMIC (EYE) PM RF: 0 Breo Ellipta 100-25 mcg/dose Blister With Device 1 inh INHALATION Q2D RF: 0 PreserVision AREDS-2 [id number] [id number] Capsule 1 tab PO QAM RF: 0 Toujeo Max U-300 SoloStar 300 unit/mL (3 mL) Insulin Pen 19 unit SUBCUT HS RF: 0 Discharge Orders: Discharge Order (Routine); Ordered 05/01/19 Ordered By: Stuart Bernard Admission Data Admit Date/Time: 04/28/19 09:35 Attending Provider: Stuart Bernard Admit Provider: Stuart Bernard Primary Care Provider: PCP,NO Other Providers: Stan Marie ; Jenaro Schmitt
[2019-05-01] MEDS ORDERED: INSULIN GLARGINE SOLOSTAR 100 UNITS/ML 3 ML PEN SC SCH (21:00)
== END 2019-05-01 11:40 | disposition home or self-care (01) | DRG 454 ==
LOC: ASU 06:27 → 3E 09:35